=== PATIENT | male | born 1995 | race Caucasian/White ===

== ENCOUNTER 2017-11-28 18:09 | Emergency (ER) | payer OTHER ==
--- NOTE | 2017-11-28 18:22 | EDPHY ---
H & P Time Seen by Provider: 11/28/17 18:21 HPI/ROS: HPI: This is a 22-year-old male who presents with Chief Complaint: Right knee pain, surgery 11/19/17 Location:right knee Quality:pain Duration: 1 week Signs and Symptoms: No bleeding, no radiation, no numbness, no weakness, no tingling, no incontinence, + decreased range of motion, + swelling, + pain Timing: Gradually worsening Severity: Moderate to severe Context: Patient is status post arthroscopic knee surgery on 11/19/[address] [place] status post ACL and MCL repair. He reports that after surgery there was some mild knee swelling. He followed up on the 26 of November with Orthopedics. Sutures were removed and he was cleared to start physical therapy. He started physical therapy the next day or 2. He reports that he had rapidly worsening swelling of his right knee and constant severe pain. He did not attend his physical therapy session on Friday due to the discomfort. His orthopedist ordered an outpatient right lower extremity ultrasound that was negative for deep venous thrombosis. He denies paresthesias /weakness/shortness of breath/chest pain/fever/drainage. He does have decreased range of motion but this is anticipated status post surgery. Reports that he has continuous ice therapy that he has been using with transient relief. Using keep crutches to aid ambulation as well as hinged knee brace. Modifying Factors: Comment: ROS: see HPI Constitutional: No fever, no chills, no weight loss Eyes: No blurred vision Respiratory: No shortness of breath, no cough Cardiovascular: No chest pain Gastrointestinal: No nausea, no vomiting no diarrhea Genitourinary: No dysuria Extremities: No myalgias Neurologic: No weakness, no numbness Skin: No rashes Hematologic: No bruising, no bleeding MEDICAL/SURGICAL/SOCIAL HISTORY: Medical history: Generally healthy. Does not take any regular medications. Surgical history: Right arthroscopic knee surgery Social history: Student. CONSTITUTIONAL: awake and alert, no obvious distress HEENT: Atraumatic and normocephalic, PERRL, EOMI. Tympanic membranes clear. Oropharynx clear, no exudate and moist pink mucosa. Airway patent. No lymphadenopathy. No meningismus. Cardiovascular: Normal S1/S2, regular rate, regular rhythm, without murmur rub or gallop. PULMONARY/CHEST: Symmetrical and nontender. Clear to auscultation bilaterally. Good air movement. No accessory muscle usage. ABDOMEN: Soft, nondistended, nontender, no rebound, no guarding, no peritoneal signs, no masses or organomegaly. No CVAT. EXTREMITIES: 2/2 DP and PT pulses, strength 5/5, right KNEE: Moderate effusion with mild induration, no medial and lateral joint line tenderness, full extension to 180, flexion to 90. No pain with varus and valgus exam. No pain with anterior drawer or posterior drawer test. no deformities, no clubbing , no cyanosis or edema. No calf tenderness. NEUROLOGICAL: no focal neuro deficits. GCS 15. SKIN: Warm and dry, no erythema. no rash. Good capillary refill. Source: Patient Exam Limitations: No limitations Constitutional: Initial Vital Signs Temperature (C) 37.1 C 11/28/17 18:15 Heart Rate 85 11/28/17 18:15 Respiratory Rate 16 11/28/17 18:15 Blood Pressure 125/95 H 11/28/17 18:15 O2 Sat (%) 95 11/28/17 18:15 O2 Delivery Mode Room Air Allergies/Adverse Reactions: No Known Allergies Allergy (Verified 11/28/17 18:20) Home Medications: Medication Instructions Recorded Adderall 10 MG (*) 11/28/17 Aspirin 11/28/17 Oxycodone HCl 11/28/17 oxyCODONE HCL/ACETAMINOPHEN 1 each PO Q6 PRN #20 tablet 11/28/17 [Percocet 7.5-325 mg Tablet] Medical Decision Making - Diagnostics Imaging Results: Imaging Impressions Extremity Venous Study 11/28/17 17:12 Impression: No deep venous thrombosis right leg. ED Course/Re-evaluation: Patient clearly has moderate effusion secondary to physical therapy. He was advised to stay out of physical therapy for 1 week. Rice therapy, given Percocet x2 in the emergency room and prescription for same. No signs of DVT/neurovascular compromise/tenting of skin/compartment syndrome/ extremities and joints examined above and below area of concern and are neurovascularly intact. This patient was seen under the supervision of my primary supervising physician. I evaluated care for this patient independently. Differential Diagnosis: Leg swelling including but not limited to hypoalbuminemia, DVT, inflammation. Departure - Departure Disposition: Home, Routine, Self-Care Clinical Impression: History of arthroscopic knee surgery, Swelling of knee joint, right Condition: Good Instructions: Swollen Knee Joint (ED) Additional Instructions: Take Tylenol 650 mg every 4 hours and/or Ibuprofen 600 mg every 8 hours with food as needed for pain. Use Percocet every 6 hours as needed for severe/breakthrough pain. Do not use Tylenol and Percocet concomitantly. Apply ice for 30 minutes at a time; 2-3 times per day for the next 3-5 days. Please do not go to physical therapy for the next 5-7 days or until knee swelling has improved. Keep your Follow up with Orthopedics as previously scheduled. Referrals: PCP Not In,Dictionary [Medical Doctor] - As per Instructions Prescriptions: oxyCODONE HCL/ACETAMINOPHEN [Percocet 7.5-325 mg Tablet] 1 each PO Q6 PRN #20 tablet PRN Reason: Pain, Severe
[2017-11-28 18:26] VITALS: BP 125/95; PULSE 85; RESP 16; TEMP 98.8; O2SAT 95
[2017-11-28] MEDS ORDERED: OXYCODONE/APAP 5/325 TAB PO ONE (18:42)
== END 2017-11-28 19:05 | disposition home or self-care (01) ==
LOC: EDSTATUS 18:09
DX: T81.89XA Other complications of procedures, not elsewhere classified, initial encounter (principal); Y82.8 Other medical devices associated with adverse incidents